=== PATIENT | female | born 1965 | race American Indian/Alaskan Native ===

== ENCOUNTER 2017-05-02 15:26 | Emergency (ER) | payer MEDICAID ==
[2017-05-02 15:26] VITALS: BMI 26.4
[2017-05-02 15:35] VITALS: BP 138/86; PULSE 62; RESP 20; TEMP 98.2; O2SAT 98
[2017-05-02] MEDS ORDERED: Albuterol 0.083% Inhal Sol (2.5 mg/3 mL) UD ONE (16:57)
--- NOTE | 2017-05-02 17:13 | RAD ---
PROCEDURE: Right Hand Radiographs. HISTORY: injury COMPARISON: None. FINDINGS: BONES: Normal. No fracture. JOINTS: Moderate osteoarthritic changes. SOFT TISSUES: Normal. OTHER FINDINGS: None. IMPRESSION: No evidence of acute fracture or dislocation.
--- NOTE | 2017-05-02 17:18 | C.PDOC ---
History Of Present Illness 52 yo BIBA for evaluation of Right arm, right hip and knee pain developed for past few hours after sustained mechanical fall, while going upstairs. Pt reports , tripped and fell, landed onto right side. pain is localized over Right hand, radiating up to right arm worse with right hand movement. Also reports pain to Right knee. Otherwise, pt denies head injury, LOC, syncope, denies headache, dizziness, visual changes, focal deficits, neck pain, CP, SOB, dyspnea, palpitation, denies obvious deformity, weakness, sensory or vascular deficits to B/L UEs and LEs. At the time of evaluation, appears comfortable, not in any apparent distress. 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) Current Symptoms Are (Timing): Still Present Past Medical History Reviewed: Historical Data, Nursing Documentation, Vital Signs Vital Signs: Last Vital Signs Temp 98.2 F 05/02/17 15:35 Pulse 62 05/02/17 15:35 Resp 20 05/02/17 15:35 BP 138/86 05/02/17 15:35 Pulse Ox 98 05/02/17 17:28 - Medical History PMH: Anxiety, Arthritis, Asthma, Back Problems, Bipolar Disorder, Bronchitis, COPD, Diabetes, HTN, Seizures - [facility] Procedures INFLUENZA VACCINATION (04/09/13) TETANUS TOXOID ADMINIST (02/10/14) VACCINATION NEC (04/09/13) Family History: States: No Known Family Hx - Social History Hx Tobacco Use: Yes Hx Alcohol Use: No Hx Substance Use: No - Immunization History Hx Tetanus Toxoid Vaccination: Yes Hx Influenza Vaccination: No Hx Pneumococcal Vaccination: No Review Of Systems Except As Marked, All Systems Reviewed And Found Negative. Eyes: Negative for: Vision Change Cardiovascular: Negative for: Chest Pain, Palpitations Respiratory: Negative for: Shortness of Breath Musculoskeletal: Positive for: Arm Pain (right), Other ((+) right hip, right knee pain). Negative for: Neck Pain Neurological: Negative for: Weakness, Numbness, Headache, Dizziness Physical Exam - Physical Exam Appears: Well, Non-toxic, No Acute Distress Skin: Normal Color, Warm, Dry, No Rash, No Ecchymosis Head: Atraumatic, Normacephalic Eye(s): bilateral: PERRL Nose: No Flaring, No Discharge Oral Mucosa: Moist, No Drooling Tongue: Normal Appearing Lips: Normal Appearing Throat: No Drooling Neck: Normal ROM, Trachea Midline, No Midline Cervical Tenderness, No Paracervical Tenderness, No Step Off Deformity, Supple Chest: Symmetrical, No Deformity, No Tenderness Cardiovascular: Rhythm Regular Respiratory: No Decreased Breath Sounds, No Accessory Muscle Use, No Stridor, No Wheezing Gastrointestinal/Abdominal: Soft, No Tenderness, No Distention, No Guarding Back: No Vertebral Tenderness, No Paraspinal Tenderness Extremity: Normal ROM (of B/L UEs and LEs, no deformity, no neurovscular deficits.), Tenderness (mild over dorsal asepct Right hand, anterior aspect Right knee.), No Deformity, No Swelling Neurological/Psych: Oriented x3, Normal Speech, Normal Motor, Normal Sensation, Normal Reflexes ED Course And Treatment O2 Sat by Pulse Oximetry: 98 (RA) Pulse Ox Interpretation: Normal - Other Rad Right hand X-Ray: Interpreted by Me, Viewed By Me, Read By Radiologist Interpretation: (-) acute fx or dislocation Right knee X-Ray: Interpreted by Me, Viewed By Me Interpretation: (-) acute fx or dislocation Right hip and pelvis X-Ray: Interpreted by Me, Viewed By Me Interpretation: (-) acute fx or dislocation Progress Note: On re-eval, pt is awake, comforatble, not in any apparent distress. Afebrile, hemodynamicaly stable. Non-toxic. Ambulatory in ED with stable gait. Tolerate Po well in ED. Head: AT/NC neck: Supple, (-) midline tenderness. Lungs: CTA B/L, BS equal B/L. Abd: benign. Neurologicaly intact. Imaging review and appears normal. Pt has clinical findings c/w Right arm contusion, Right knee contusion s/p mechanical fall. Pt advised. ref. to F/u with PMD in 2-3 days for re-eval. return if any new changes. Medical Decision Making Medical Decision Making: PLAN: * X-Ray - Right Elbow, Right Hand, Hip w/ Pelvis, Right Knee * POC * Urinalysis * Tramdol Po * Valium PO Disposition Counseled Patient/Family Regarding: Studies Performed, Diagnosis, Need For Followup, Rx Given - Disposition Referrals: Hemanth Fernandez MD [Medical Doctor] - Disposition: HOME/ ROUTINE Disposition Time: 17:15 Condition: STABLE Additional Instructions: LIGHT DUTY TO INJURED LIMB TAE PAIN MEDICATION PRESCRIBED NEED FOLLOW UP WITH PMD IN 2-3 DAYS FOR RE-EVALUATION. RETURN TO ED IF ANY WORSENING OR NEW CHANGES. 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 - Scribe Statement The provider has reviewed the documentation as recorded by the Scribe Lori De Los Santos All medical record entries made by the Scribe were at my direction and personally dictated by me. I have reviewed the chart and agree that the record accurately reflects my personal performance of the history, physical exam, medical decision making, and the department course for this patient. I have also personally directed, reviewed, and agree with the discharge instructions and disposition.
--- NOTE | 2017-05-02 17:26 | RAD ---
PROCEDURE: Radiographs of the right elbow. HISTORY: injury COMPARISON: No prior. FINDINGS: BONES: Normal. No fracture. JOINTS: Normal. No osteoarthritis. SOFT TISSUES: Normal. JOINT EFFUSION: None. OTHER FINDINGS: None. IMPRESSION: No evidence of acute fracture or dislocation.
--- NOTE | 2017-05-02 17:28 | RAD ---
PROCEDURE: Right Knee Radiographs. HISTORY: injury COMPARISON: Comparison is made with previous study dated 02/10/2014 FINDINGS: BONES: Normal. No fracture. JOINTS: Mild osteoarthritic changes are noted. JOINT EFFUSION: None. OTHER FINDINGS: None. IMPRESSION: No evidence of acute injury in the right knee. Mild osteoarthritic changes.
--- NOTE | 2017-05-02 17:30 | RAD ---
PROCEDURE: Right Hip Radiographs. HISTORY: injury COMPARISON: None. FINDINGS: BONES: No evidence of acute fracture. JOINTS: [id number] osteoarthritic changes at the hip joints associated with narrowing of the joint space SOFT TISSUES: Normal. OTHER FINDINGS: None. IMPRESSION: No evidence of acute fracture or dislocation. Arthritic degenerative changes of the hip joints.
== END 2017-05-02 17:53 | disposition home or self-care (01) ==
LOC: C.ER 15:26
DX: S60.221A Contusion of right hand, initial encounter (principal); S80.01XA Contusion of right knee, initial encounter; W01.0XXA Fall on same level from slipping, tripping and stumbling without subsequent striking against object, initial encounter; Y92.89 Other specified places as the place of occurrence of the external cause; I10 Essential (primary) hypertension; E11.9 Type 2 diabetes mellitus without complications; F17.210 Nicotine dependence, cigarettes, uncomplicated

== ENCOUNTER 2018-06-05 01:41 | Emergency (ER) | payer OTHER, MEDICAID ==
[2018-06-05 01:41] VITALS: BMI 25.0
[2018-06-05 02:06] VITALS: BP 151/59; RESP 20; O2SAT 100
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
[2018-06-05 07:04] VITALS: PULSE 86; TEMP 98
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
== END 2018-06-05 06:00 | disposition home or self-care (01) ==
LOC: C.ER 01:41
DX: S16.1XXA Strain of muscle, fascia and tendon at neck level, initial encounter (principal); V49.50XA Passenger injured in collision with unspecified motor vehicles in traffic accident, initial encounter; Y92.410 Unspecified street and highway as the place of occurrence of the external cause